=== PATIENT | female | born 1970 | race Caucasian/White ===

== ENCOUNTER 2017-12-23 11:48 | Emergency (ER) | payer BC ==
[2017-12-23 13:29] LABS: Urine Blood NEGATIVE (NEG); Urine Glucose NEGATIVE (NEG); Urine Protein NEGATIVE (NEG); Urine pH 6.5 (5.0-7.0)
[2017-12-23] MEDS ORDERED: DEXAMETHASONE 10 MG/ML VIAL ONE (13:42)
[2017-12-23] MEDS ORDERED: ACETAMINOPHEN 500 MG TAB ONE (13:43)
[2017-12-23] MEDS ORDERED: NA CHLORIDE 0.9% 1,000 ML ONE (13:43)
[2017-12-23] MEDS ORDERED: ONDANSETRON 4 MG/2 ML VIAL ONE (13:43)
--- NOTE | 2017-12-23 13:50 | RAD REPORT ---
EXAM DESCRIPTION: CT - Head Brain Wo Cont - 12/23/2017 1:37 pm CLINICAL HISTORY: Headache and vomiting COMPARISON: None. TECHNIQUE: Computed axial tomography of the head was obtained. IV contrast was not requested. All CT scans are performed using dose optimization technique as appropriate and may include automated exposure control or mA/KV adjustment according to patient size. FINDINGS: An intracranial bleed is not seen . The ventricles are normal in caliber. No extra-axial fluid collection is noted. Fluid within the sinuses/ mastoids is not seen. IMPRESSION: No acute intracranial abnormality is seen. If patient's symptoms persist MRI of the bra in would be recommended.
[2017-12-23 14:05] LABS: Absolute Lymphocytes (CBC) 2.9 K/uL (0.7-4.9); Absolute Monocytes 0.7 K/uL (0.1-1.3); Absolute Neutrophil 5.5 K/uL (1.8-8.0); Basophils % 0.2 % (0-1.3); Hematocrit 46.6 % (36.0-45.0); Lymphocytes % 31.8 % (15.3-44.8); MCH 33.7 pg (27.0-35.0); MCV 99.1 fL (80-100); MPV 10.1 fL (7.6-11.3); Monocytes % 7.2 % (3.3-12.3); RBC Red Blood Cell Count 4.71 M/uL (3.86-4.86)
[2017-12-23 14:20] LABS: ALT/SGPT 70 U/L (12-78); AST/SGOT 49 U/L (15-37); Albumin 3.1 g/dL (3.4-5.0); Alkaline Phosphatase 125 U/L (45-117); BUN Blood Urea Nitrogen 7 mg/dL (7-18); Bicarbonate 29 mmol/L (21-32); Bilirubin Direct < 0.1 mg/dL (0-0.2); Bilirubin Total 0.2 mg/dL (0.2-1.0); Glucose Level 94 mg/dL (74-106); Lipase 148 U/L (73-393); Potassium 3.6 mmol/L (3.5-5.1); Protein, Total 7.3 g/dL (6.4-8.2); Sodium Level 143 mmol/L (136-145)
[2017-12-23 14:24] LABS: Urine RBC <5 /HPF (NONE SEEN)
[2017-12-23 14:25] LABS: Urine Bacteria 20-50 /HPF (<20); Urine Culture Reflex Order REFLEXED
[2017-12-23] MEDS ORDERED: CEFTRIAXONE/SWI 1gm 1 GM/10 ML SYR ONE (15:20)
--- NOTE | 2017-12-23 15:39 | ER ---
Nurse's Notes [facility] Name: Arely Cronin Age: 47 yrs Sex: Female : 1970 Arrival Date: 12/23/2017 Time: 11:50 Bed 30 Private MD: Diagnosis: acute headache;acute vomiting;acute UTI Presentation: 12/23 12:17 Presenting complaint: Patient states: " I have had a headache and I've been throwing up ph since yesterday and I can't keep anything down." Pt reports epigastric pain, N/V/D, denies fever. Transition of care: patient was not received from another setting of care. Onset of symptoms was December 23, 2017. Risk Assessment: Do you want to hurt yourself or someone else? Patient reports no desire to harm self or others. Initial Sepsis Screen: Does the patient meet any 2 criteria? No. Patient's initial sepsis screen is negative. Does the patient have a suspected source of infection? No. Patient's initial sepsis screen is negative. Care prior to arrival: None. 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 - Social history:: Smoking status: Patient uses tobacco products, smokes one pack cigarettes per day. - Ebola Screening: : Patient negative for fever greater than or equal to 101.5 degrees Fahrenheit, and additional compatible Ebola Virus Disease symptoms Patient denies exposure to infectious person Patient denies travel to an Ebola-affected area in the 21 days before illness onset No symptoms or risks identified at this time. - Family history:: not pertinent. - Hospitalizations: : No recent hospitalization is reported. Screenin:05 Abuse screen: Denies threats or abuse. Denies injuries from another. Nutritional kr2 screening: No deficits noted. Tuberculosis screening: No symptoms or risk factors identified. Fall Risk None identified. Assessment: 13:05 General: Appears in no apparent distress. uncomfortable, well groomed, well developed, kr2 well nourished, Behavior is calm, cooperative, appropriate for age. Pain: Complains of pain in head Pain does not radiate. Pain currently is 8 out of 10 on a pain scale. Quality of pain is described as throbbing, Pain began 1 day ago. Is continuous, Alleviated by nothing. Neuro: Level of Consciousness is awake, alert, obeys commands, Oriented to person, place, time, situation, Appropriate for age. Cardiovascular: Capillary refill < 3 seconds in bilateral fingers Patient's skin is warm and dry. Respiratory: Airway is patent Respiratory effort is even, unlabored, Respiratory pattern is regular, symmetrical. GI: Abdomen is flat, non-distended, Reports nausea, vomiting, since yesterday. : Urine is clear, Denies burning with urination. EENT: Oral mucosa is dry. Derm: Skin is intact, is healthy with good turgor, Skin is pink, warm \\T\\ dry. Musculoskeletal: Circulation, motion, and sensation intact. 14:40 Reassessment: Patient appears in no apparent distress at this time. Patient and/or kr2 family updated on plan of care and expected duration. Pain level reassessed. Patient is alert, oriented x 3, equal unlabored respirations, skin warm/dry/pink. Patient's oxygen saturation dropping to 89% on room air. Placed on Oxygen via NC \\T\\ 2LPM. Dr. Jones Patient states feeling better. 15:21 Reassessment: Patient appears in no apparent distress at this time. Patient and/or kr2 family updated on plan of care and expected duration. Pain level reassessed. Patient is alert, oriented x 3, equal unlabored respirations, skin warm/dry/pink. Patient states feeling better. Patient states symptoms have improved. 15:46 Reassessment: Patient appears in no apparent distress at this time. Patient and/or kr2 family updated on plan of care and expected duration. Pain level reassessed. Patient is alert, oriented x 3, equal unlabored respirations, skin warm/dry/pink. Patient states feeling better. Patient states symptoms have improved. Vital Signs: 12:20 BP 139 / 83; Pulse 101; Resp 20; Temp 97.9; Pulse Ox 96% on R/A; Weight 99.79 kg; ph Height 5 ft. 7 in. (170.18 cm); Pain 5/10; 13:30 BP 100 / 58; Pulse 88; Resp 16; Pulse Ox 95% on R/A; Pain 8/10; kr2 14:41 BP 114 / 70; Pulse 73; Resp 18; Pulse Ox 94% on 2 lpm NC; kr2 15:21 BP 117 / 75; Pulse 78; Resp 16; Pulse Ox 98% on 2 lpm NC; kr2 15:46 BP 130 / 83; Pulse 70; Resp 17; Pulse Ox 98% ; kr2 12:20 Body Mass Index 34.46 (99.79 kg, 170.18 cm) ph ED Course: 11:50 Patient arrived in ED. jb7 12:19 Triage completed. ph 12:20 Arm band placed on. ph 12:59 Ryan Dockery, RN is Primary Nurse. mg2 13:00 Primary Nurse role handed off by Ryan Dockery RN kr2 13:00 Althea Alvarado, RN is Primary Nurse. kr2 13:01 Althea Alvarado, LUZ MARIA is Primary Nurse. kr2 13:02 Nelson Jones MD is Attending Physician. wa 13:05 Patient has correct armband on for positive identification. Bed in low position. Call kr2 light in reach. Side rails up X 1. Pulse ox on. NIBP on. Door closed. Warm blanket given. Head of bed elevated. 13:05 Urine collected: clean catch specimen, clear. kr2 13:35 CT completed. Patient tolerated procedure well. Patient taken to lobby, Patient moved sj to CT. Patient moved to CT via wheelchair. Patient moved back from CT. 13:37 CT Head Brain wo Cont In Process Unspecified. EDMS 13:45 Inserted saline lock: 20 gauge in right forearm, using aseptic technique. Blood kr2 collected. 15:38 Frank Mondragon MD is Referral Physician. wa 15:47 No provider procedures requiring assistance completed. IV discontinued, intact, kr2 bleeding controlled, No redness/swelling at site. Pressure dressing applied. Administered Medications: 13:54 Drug: Zofran 4 mg Route: IVP; Site: right forearm; kr2 14:31 Follow up: Response: No adverse reaction kr2 13:54 Drug: Tylenol 1000 mg Route: PO; kr2 14:32 Follow up: Response: No adverse reaction; Pain is decreased kr2 13:55 Drug: NS 0.9% 1000 ml Route: IV; Rate: 1 bolus; Site: right forearm; kr2 14:31 Follow up: Response: No adverse reaction; IV Status: Completed infusion kr2 13:55 Drug: Decadron - Dexamethasone 10 mg Route: IVP; Site: right forearm; kr2 14:31 Follow up: Response: No adverse reaction kr2 15:18 Drug: Rocephin - (cefTRIAXone) 1 grams Route: IVPB; Infused Over: 30 mins; Site: right kr2 forearm; 15:47 Follow up: Response: No adverse reaction; IV Status: Completed infusion kr2 Outcome: 15:38 Discharge ordered by . estevan 15:48 Discharged to home ambulatory, with family. kr2 15:48 Condition: improved 15:48 Discharge instructions given to patient, family, Instructed on discharge instructions, follow up and referral plans. medication usage, Demonstrated understanding of instructions, follow-up care, medications, Prescriptions given X 2. 15:48 Patient left the ED. kr2 Signatures: Dispatcher [employer] EDMS Elyse Chaney Patricia, RN RN ph Andrew Parisi jb7 Nelson Jones MD MD wa Reaves, Karey, RN RN kr2 Ryan Dockery RN RN mg2 Corrections: (The following items were deleted from the chart) 15:47 15:21 BP 117 / 75; Pulse 18bpm; Resp 16bpm; Pulse Ox 98% 2 lpm Nasal Cannula; kr2 kr2
--- NOTE | 2017-12-23 15:39 | EDPHYS ---
Physician Documentation [facility] Name: Arely Cronin Age: 47 yrs Sex: Female : 1970 Arrival Date: 12/23/2017 Time: 11:50 Bed 30 Private MD: ED Physician Nelson Jones HPI: 12/23 17:20 This 47 yrs old Female presents to ER via Ambulatory with complaints of wa Nausea/Vomiting. 17:20 The patient presents to the emergency department with nausea, vomiting, states woke up wa yesterday with FINCH. had a couple episodes of vomiting, then FINCH subsided. Today same FINCH, c/o nausea and vomiting. denies fever. denies photophobia. pain gradual in onset. describes as 12/15. denies fever. Onset: The symptoms/episode began/occurred yesterday. Possible causes: unknown. The symptoms are aggravated by nothing. The symptoms are alleviated by nothing. Associated signs and symptoms: Pertinent negatives: abdominal pain, constipation, dysuria, fever, hematuria, vaginal discharge. Severity of symptoms: At their worst the symptoms were moderate in the emergency department the symptoms are unchanged. The patient has not experienced similar symptoms in the past. The patient has not recently seen a physician. denies family h/o aneurysms or HAs. 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 - Social history:: Smoking status: Patient uses tobacco products, smokes one pack cigarettes per day. - Ebola Screening: : Patient negative for fever greater than or equal to 101.5 degrees Fahrenheit, and additional compatible Ebola Virus Disease symptoms Patient denies exposure to infectious person Patient denies travel to an Ebola-affected area in the 21 days before illness onset No symptoms or risks identified at this time. - Family history:: not pertinent. - Hospitalizations: : No recent hospitalization is reported. ROS: 17:32 Constitutional: Negative for fever, chills, and weight loss, Eyes: Negative for injury, wa pain, redness, and discharge, ENT: Negative for injury, pain, and discharge, Neck: Negative for injury, pain, and swelling, Cardiovascular: Negative for chest pain, palpitations, and edema, Respiratory: Negative for shortness of breath, cough, wheezing, and pleuritic chest pain, Back: Negative for injury and pain, : Negative for injury, bleeding, discharge, and swelling, MS/Extremity: Negative for injury and deformity, Skin: Negative for injury, rash, and discoloration, Psych: Negative for depression, anxiety, suicide ideation, homicidal ideation, and hallucinations. 17:32 Abdomen/GI: Positive for nausea and vomiting, Negative for abdominal pain. 17:32 Neuro: Positive for headache, nausea and vomiting. 17:32 All other systems are negative. Exam: 17:33 Constitutional: This is a well developed, well nourished patient who is awake, alert, wa and in no acute distress. Head/Face: Normocephalic, atraumatic. Eyes: Pupils equal round and reactive to light, extra-ocular motions intact. Lids and lashes normal. Conjunctiva and sclera are non-icteric and not injected. Cornea within normal limits. Periorbital areas with no swelling, redness, or edema. ENT: Nares patent. No nasal discharge, no septal abnormalities noted. Tympanic membranes are normal and external auditory canals are clear. Oropharynx with no redness, swelling, or masses, exudates, or evidence of obstruction, uvula midline. Mucous membranes moist. Neck: Trachea midline, no thyromegaly or masses palpated, and no cervical lymphadenopathy. Supple, full range of motion without nuchal rigidity, or vertebral point tenderness. No Meningismus. Chest/axilla: Normal chest wall appearance and motion. Nontender with no deformity. No lesions are appreciated. Cardiovascular: Regular rate and rhythm with a normal S1 and S2. No gallops, murmurs, or rubs. Normal PMI, no JVD. No pulse deficits. Respiratory: Lungs have equal breath sounds bilaterally, clear to auscultation and percussion. No rales, rhonchi or wheezes noted. No increased work of breathing, no retractions or nasal flaring. Abdomen/GI: Soft, non-tender, with normal bowel sounds. No distension or tympany. No guarding or rebound. No evidence of tenderness throughout. Back: No spinal tenderness. No costovertebral tenderness. Full range of motion. Skin: Warm, dry with normal turgor. Normal color with no rashes, no lesions, and no evidence of cellulitis. MS/ Extremity: Pulses equal, no cyanosis. Neurovascular intact. Full, normal range of motion. 17:33 Neuro: Orientation: is normal, Mentation: is normal, Memory: is normal, Cranial nerves: grossly normal, Cerebellar function: is grossly normal based on the patient's age, no acute changes, normal finger to nose testing, heel to otero testing is normal, able to perform alternating rapid hand movements, Motor: is normal, Gait: is steady. Vital Signs: 12:20 BP 139 / 83; Pulse 101; Resp 20; Temp 97.9; Pulse Ox 96% on R/A; Weight 99.79 kg; ph Height 5 ft. 7 in. (170.18 cm); Pain 5/10; 13:30 BP 100 / 58; Pulse 88; Resp 16; Pulse Ox 95% on R/A; Pain 8/10; kr2 14:41 BP 114 / 70; Pulse 73; Resp 18; Pulse Ox 94% on 2 lpm NC; kr2 15:21 BP 117 / 75; Pulse 78; Resp 16; Pulse Ox 98% on 2 lpm NC; kr2 15:46 BP 130 / 83; Pulse 70; Resp 17; Pulse Ox 98% ; kr2 12:20 Body Mass Index 34.46 (99.79 kg, 170.18 cm) ph MDM: 13:03 Patient medically screened. in 17:33 Differential diagnosis: r/o acute ICH. migraine? tension FINCH? treat pain and reassess. in Data reviewed: vital signs, nurses notes. Test interpretation: by ED physician or midlevel provider: labs noted for UTI. head CT noted negative for acute process. Response to treatment: the patient's symptoms have resolved after treatment. ED course: FINCH resolved. treated UTI. advised close f/u and to return if severe symptoms reoccur. will not LP at this time, based on findings and reassessment. 12/23 13:25 Order name: Urine Dipstick--Ancillary (enter results); Complete Time: 15:09 bd 12/23 13:25 Order name: Urine --Ancillary (enter results) 12/23 13:28 Order name: Basic Metabolic Panel; Complete Time: 15:09 in 12/23 13:28 Order name: CBC with Diff; Complete Time: 15: in 12/23 13:28 Order name: Hepatic Function; Complete Time: 15:09 in 12/23 13:28 Order name: Lipase; Complete Time: 15:10 in 12/23 13:27 Order name: CT Head Brain wo Cont; Complete Time: 15: in 12/23 13:28 Order name: Urine Microscopic Only; Complete Time: 15:09 in 12/23 14:26 Order name: Urine Culture [facility] 12/23 13:28 Order name: IV Saline Lock; Complete Time: 13:55 in 12/23 13:28 Order name: Labs collected and sent; Complete Time: 13:55 in 12/23 13:28 Order name: Urine Dipstick-Ancillary (obtain specimen); Complete Time: 13:55 in Administered Medications: 13:54 Drug: Zofran 4 mg Route: IVP; Site: right forearm; kr2 14:31 Follow up: Response: No adverse reaction kr2 13:54 Drug: Tylenol 1000 mg Route: PO; kr2 14:32 Follow up: Response: No adverse reaction; Pain is decreased kr2 13:55 Drug: NS 0.9% 1000 ml Route: IV; Rate: 1 bolus; Site: right forearm; kr2 14:31 Follow up: Response: No adverse reaction; IV Status: Completed infusion kr2 13:55 Drug: Decadron - Dexamethasone 10 mg Route: IVP; Site: right forearm; kr2 14:31 Follow up: Response: No adverse reaction kr2 15:18 Drug: Rocephin - (cefTRIAXone) 1 grams Route: IVPB; Infused Over: 30 mins; Site: right kr2 forearm; 15:47 Follow up: Response: No adverse reaction; IV Status: Completed infusion kr2 Disposition: 12/23/17 15:38 Discharged to Home. Impression: acute headache, acute vomiting, acute UTI. - Condition is Stable. - Prescriptions for Cipro 500 mg Oral Tablet - take 1 tablet by ORAL route every 12 hours for 3 days; 6 tablet. Zofran 4 mg Oral Tablet - take 1 tablet by ORAL route every 12 hours As needed; 6 tablet. - Medication Reconciliation Form, Thank You Letter, Antibiotic Education, Prescription Opioid Use, Work release form form. - Follow up: Frank Mondragon MD; When: 1 - 2 days; Reason: Recheck today's complaints. - Problem is new. - Symptoms have improved. - Notes: return to ER immediately for worsening pain and or vomiting. take medicines as prescribed. you may take tylenol for headache Signatures: Dispatcher [employer] EDJennifer Estrada RN RN Nelson Jones MD MD wa Reaves, Karey, RN RN kr2 Corrections: (The following items were deleted from the chart) 15:48 15:38 12/23/2017 15:38 Discharged to Home. Impression: acute headache; acute vomiting; kr2 acute UTI. Condition is Stable. Forms are Work release form, Medication Reconciliation Form, Thank You Letter, Antibiotic Education, Prescription Opioid Use. Follow up: Frank Mondragon; When: 1 - 2 days; Reason: Recheck today's complaints. Problem is new. Symptoms have improved. estevan
[2017-12-23 16:20] VITALS: TEMP 97.9
[2017-12-23 16:23] VITALS: O2SAT 98
[2017-12-23 16:25] VITALS: BP 130/83
== END 2017-12-23 15:48 | disposition home or self-care (01) ==
LOC: ER 11:48
DX: N39.0 Urinary tract infection, site not specified (principal); R11.2 Nausea with vomiting, unspecified; I10 Essential (primary) hypertension; F31.9 Bipolar disorder, unspecified; F17.210 Nicotine dependence, cigarettes, uncomplicated; Z88.5 Allergy status to narcotic agent
CPT/HCPCS: 36415; 70450; 80048; 80076; 81003; 81015; 81025; 83690; 85025; 87086; 87088; 96361; 96365; 96375; 99284; J0696; J1100; J2405; J7030

== ENCOUNTER 2017-12-24 18:57 | Observation (INO) | payer BC ==
[2017-12-24] MEDS ORDERED: NA CHLORIDE 0.9% 1,000 ML ONE (19:34)
[2017-12-24] MEDS ORDERED: DIPHENHYDRAMINE 50 MG/ML VIAL ONE (19:34)
[2017-12-24] MEDS ORDERED: DEXAMETHASONE 10 MG/ML VIAL ONE (19:34)
[2017-12-24] MEDS ORDERED: METOCLOPRAMIDE 10 MG/2mL INJ ONE (19:34)
[2017-12-24 19:43] LABS: Absolute Lymphocytes (CBC) 2.9 K/uL (0.7-4.9); Absolute Monocytes 0.9 K/uL (0.1-1.3); Absolute Neutrophil 12.5 K/uL (1.8-8.0); Basophils % 0.6 % (0-1.3); Eosinophils % 0.2 % (0-4.4); Hematocrit 46.2 % (36.0-45.0); Lymphocytes % 17.5 % (15.3-44.8); MCH 33.4 pg (27.0-35.0); MCV 100.6 fL (80-100); MPV 9.8 fL (7.6-11.3); Monocytes % 5.3 % (3.3-12.3); RBC Red Blood Cell Count 4.59 M/uL (3.86-4.86)
[2017-12-24] MEDS ORDERED: FENTANYL CITR 100 MCG/2 ML ONE (19:54)
[2017-12-24 19:58] LABS: ALT/SGPT 74 U/L (12-78); AST/SGOT 43 U/L (15-37); Albumin 3.3 g/dL (3.4-5.0); Alkaline Phosphatase 126 U/L (45-117); BUN Blood Urea Nitrogen 8 mg/dL (7-18); Bicarbonate 30 mmol/L (21-32); Bilirubin Direct 0.1 mg/dL (0-0.2); Bilirubin Total 0.2 mg/dL (0.2-1.0); Glucose Level 138 mg/dL (74-106); Lipase 389 U/L (73-393); Potassium 3.6 mmol/L (3.5-5.1); Protein, Total 7.8 g/dL (6.4-8.2); Sodium Level 141 mmol/L (136-145)
[2017-12-24 20:16] LABS: Urine Bacteria <20 /HPF (<20); Urine Culture Reflex Order NOT NEEDED; Urine RBC <5 /HPF (NONE SEEN)
[2017-12-24] MEDS ORDERED: ONDANSETRON 4 MG/2 ML VIAL IV PRN (21:53)
--- NOTE | 2017-12-24 22:00 | EDPHYS ---
Physician Documentation [facility] Name: Arely Cronin Age: 47 yrs Sex: Female : 1970 Arrival Date: 12/24/2017 Time: 18:59 Bed 25 Private MD: None, None ED Physician Nelson Jones HPI: 12/24 20:42 This 47 yrs old Female presents to ER via Ambulatory with complaints of wa Nausea, Headache, Abdominal Pain. 20:50 This 47 yrs old Female presents to ER via Ambulatory with complaints of wa Nausea, Headache, Abdominal Pain. 20:50 The patient complains of pain to the diffuse. The patient describes the headache as wa aching. Onset: The symptoms/episode began/occurred 2 day(s) ago. Associated signs and symptoms: Pertinent positives: Photophobia Pertinent negatives: dizziness, fever, nausea, neck stiffness, vision changes, vomiting. Severity of symptoms: At its worst the pain was severe, in the emergency department the pain is unchanged. Headache History: Denies prior headaches. The symptoms are alleviated by nothing. the symptoms are aggravated by nothing. The patient has not experienced similar symptoms in the past. The patient has been recently seen by a physician: yesterday, in this ED. 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 - Social history:: Smoking status: Patient uses tobacco products, smokes 1.5 packs per day. - Ebola Screening: : No symptoms or risks identified at this time. - Family history:: not pertinent. - Hospitalizations: : No recent hospitalization is reported. ROS: 20:52 Constitutional: Negative for fever, chills, and weight loss, Eyes: Negative for injury, wa pain, redness, and discharge, ENT: Negative for injury, pain, and discharge, Neck: Negative for injury, pain, and swelling, Cardiovascular: Negative for chest pain, palpitations, and edema, Respiratory: Negative for shortness of breath, cough, wheezing, and pleuritic chest pain, Back: Negative for injury and pain, : Negative for injury, bleeding, discharge, and swelling, MS/Extremity: Negative for injury and deformity, Skin: Negative for injury, rash, and discoloration, Psych: Negative for depression, anxiety, suicide ideation, homicidal ideation, and hallucinations. 20:52 Abdomen/GI: Positive for abdominal pain, of the epigastric area, Negative for vomiting. 20:52 All other systems are negative. wa Exam: 20:53 Constitutional: This is a well developed, well nourished patient who is awake, alert, wa and in no acute distress. Head/Face: Normocephalic, atraumatic. Eyes: Pupils equal round and reactive to light, extra-ocular motions intact. Lids and lashes normal. Conjunctiva and sclera are non-icteric and not injected. Cornea within normal limits. Periorbital areas with no swelling, redness, or edema. ENT: Nares patent. No nasal discharge, no septal abnormalities noted. Tympanic membranes are normal and external auditory canals are clear. Oropharynx with no redness, swelling, or masses, exudates, or evidence of obstruction, uvula midline. Mucous membranes moist. Neck: Trachea midline, no thyromegaly or masses palpated, and no cervical lymphadenopathy. Supple, full range of motion without nuchal rigidity, or vertebral point tenderness. No Meningismus. Cardiovascular: Regular rate and rhythm with a normal S1 and S2. No gallops, murmurs, or rubs. Normal PMI, no JVD. No pulse deficits. Respiratory: Lungs have equal breath sounds bilaterally, clear to auscultation and percussion. No rales, rhonchi or wheezes noted. No increased work of breathing, no retractions or nasal flaring. Back: No spinal tenderness. No costovertebral tenderness. Full range of motion. Skin: Warm, dry with normal turgor. Normal color with no rashes, no lesions, and no evidence of cellulitis. MS/ Extremity: Pulses equal, no cyanosis. Neurovascular intact. Full, normal range of motion. Psych: Awake, alert, with orientation to person, place and time. Behavior, mood, and affect are within normal limits. 20:53 Abdomen/GI: Inspection: abdomen appears normal, Bowel sounds: normal, in all quadrants, Palpation: mild abdominal tenderness, in the epigastric area. 20:53 Neuro: Orientation: is normal, Mentation: is normal, Cranial nerves: grossly normal, Cerebellar function: is grossly normal, normal finger to nose testing, heel to otero testing is normal, able to perform alternating rapid hand movements, Motor: is normal. Vital Signs: 19:09 BP 160 / 103; Pulse 89; Resp 18; Temp 98(O); Pulse Ox 98% ; Weight 99.79 kg; Height 5 tl2 ft. 7 in. (170.18 cm); Pain 8/10; 20:31 BP 143 / 95; Pulse 70; Pulse Ox 97% on R/A; rv 21:33 BP 145 / 127; Pulse 67; Pulse Ox 92% on R/A; rv 19:09 Body Mass Index 34.46 (99.79 kg, 170.18 cm) tl2 MDM: 19:09 Patient medically screened. wa 21:03 Differential diagnosis: pt seen yesterday in this ED. FINCH improved. states persistent FINCH wa all day today. needs LP. Pt however s/p lumbar laminectomy with rods in the midline lumbar spine. will check CTA brain and neck. will admit for LP under fluoro in the AM. 21:57 Data reviewed: vital signs, nurses notes, lab test result(s), radiologic studies. Test wa interpretation: by ED physician or midlevel provider: labs noted for leukocytosis. Test interpretation: by ED physician or midlevel provider: CTA head and neck negative for acute process. Response to treatment: the patient's symptoms have markedly improved after treatment. Physician consultation: Matt Goldstein DO. Admission orders: after a detailed discussion of the patient's condition and case, the admit orders are written by me. 22:00 Special discussion: needs LP. metal plate in L-spine. will admit for obs and perform wa study under fluoro in the AM. . 12/24 19:20 Order name: Basic Metabolic Panel; Complete Time: 20:41 12/24 19:20 Order name: CBC with Diff; Complete Time: 20:41 12/24 19:20 Order name: Hepatic Function; Complete Time: 20:41 12/24 19:20 Order name: Lipase; Complete Time: 20:41 12/24 19:20 Order name: Urine Microscopic Only; Complete Time: 20:41 me 12/24 19:27 Order name: Head angio [facility] 12/24 19:58 Order name: Neck Angio [facility] 12/24 22:02 Order name: Comprehensive Metabolic Panel [facility] 12/24 22:02 Order name: Comprehensive Metabolic Panel [facility] 12/24 22:02 Order name: Brain Wo Cont [facility] 12/24 22:03 Order name: Lumbar Puncture For Dx [facility] 12/24 19:20 Order name: IV Saline Lock; Complete Time: 19:27 me 12/24 19:20 Order name: Labs collected and sent; Complete Time: 19:27 me 12/24 19:20 Order name: Urine Dipstick-Ancillary (obtain specimen); Complete Time: 20:06 12/24 22:02 Order name: CONS Pharmacy Consult [facility] Administered Medications: 19:45 Drug: Benadryl 12.5 mg Route: IVP; Site: right wrist; rv 20:30 Follow up: Response: No adverse reaction rv 19:45 Drug: NS 0.9% 1000 ml Route: IV; Rate: 1 bolus; Site: right wrist; rv 20:31 Follow up: Response: No adverse reaction rv 19:46 Drug: Decadron - Dexamethasone 10 mg Route: IVP; Site: right wrist; rv 20:30 Follow up: Response: No adverse reaction rv 19:46 Drug: Reglan 5 mg Route: IVP; Site: right wrist; rv 20:30 Follow up: Response: No adverse reaction rv 19:58 Drug: fentaNYL (PF) 25 mcg Route: IVP; Site: right wrist; rv 20:30 Follow up: Response: No adverse reaction; Pain is decreased rv Disposition: 12/24/17 22:00 Hospitalization ordered by Matt Goldstein for Observation. Preliminary diagnosis are Acute headache, Acute abdominal pain. - Bed requested for Telemetry/MedSurg (observation). - Status is Observation. rv - Condition is Stable. - Problem is new. - Symptoms have improved. UTI on Admission? No Signatures: Dispatcher [employer] [facility] Alice Wallace RN RN fc Knox, Taylor, RN RN tl2 Nelson Jones MD MD me Moshe Moreira RN RN rv Corrections: (The following items were deleted from the chart) :58 19:43 Test, Urine ordered. [facility] EDMS 22:33 22:00 Hospitalization Ordered by [facility] for Observation. Preliminary diagnosis fc is Acute headache; Acute abdominal pain. Bed requested for Telemetry/MedSurg (observation). Status is Observation. Condition is Stable. Problem is new. Symptoms have improved. UTI on Admission? No. wa 22:38 22:33 12/24/2017 22:00 Hospitalization Ordered by [facility] for Observation. tl2 Preliminary diagnosis is Acute headache; Acute abdominal pain. Bed requested for Telemetry/MedSurg (observation). Status is Observation. Condition is Stable. Problem is new. Symptoms have improved. UTI on Admission? No. fc 23:28 22:38 12/24/2017 22:00 Hospitalization Ordered by [facility] for Observation. rv Preliminary diagnosis is Acute headache; Acute abdominal pain. Bed requested for Telemetry/MedSurg (observation). Status is Observation. Condition is Stable. Problem is new. Symptoms have improved. UTI on Admission? No. tl2
--- NOTE | 2017-12-24 22:00 | ER ---
Nurse's Notes [facility] Name: Arely Cronin Age: 47 yrs Sex: Female : 1970 Arrival Date: 12/24/2017 Time: 18:59 Bed 25 Private MD: None, None Diagnosis: Acute headache;Acute abdominal pain Presentation: 12/24 19:07 Presenting complaint: Patient states: I was here yesterday and Dr. Jones told me to tl2 come back tonight if I felt worse. I still have a headache and upper abdominal pain. Transition of care: patient was not received from another setting of care. Onset of symptoms was December 23, 2017. Risk Assessment: Do you want to hurt yourself or someone else? Patient reports no desire to harm self or others. Initial Sepsis Screen: Does the patient meet any 2 criteria? No. Patient's initial sepsis screen is negative. Does the patient have a suspected source of infection? No. Patient's initial sepsis screen is negative. Care prior to arrival: None. 19:07 Method Of Arrival: Ambulatory tl2 19:07 Acuity: ABELINO 3 tl2 Triage Assessment: 19:09 General: Appears in no apparent distress. uncomfortable, Behavior is calm, cooperative, tl2 appropriate for age. Pain: Complains of pain in epigastric area Pain currently is 8 out of 10 on a pain scale. GI: Reports nausea, vomiting. [employer] ADJUSTER: 19:09 LMP N/A - Hysterectomy tl2 Historical: - Allergies: 19:09 Demerol; tl2 19:09 Dilaudid; tl2 - Home Meds: 19:09 Effexor Oral [Active]; lisinopril Oral [Active]; Xanax Oral [Active]; tl2 - PMHx: 19:09 Anxiety; Bipolar disorder; Hepatitis; Hypertension; tl2 - PSHx: 19:09 Cholecystectomy; Appendectomy; Hysterectomy; tl2 - Immunization history:: Adult Immunizations up to date. - Social history:: Smoking status: Patient uses tobacco products, smokes 1.5 packs per day. - Ebola Screening: : No symptoms or risks identified at this time. - Family history:: not pertinent. - Hospitalizations: : No recent hospitalization is reported. Screenin:10 Abuse screen: Denies threats or abuse. Nutritional screening: No deficits noted. tl2 Tuberculosis screening: No symptoms or risk factors identified. Fall Risk None identified. Assessment: 19:19 General: Appears in no apparent distress. comfortable, Behavior is calm, cooperative. rv Pain: Complains of pain in HEAD AND ABDOMINAL. Neuro: Level of Consciousness is awake, alert, obeys commands, Oriented to person, place, time, situation. Cardiovascular: Heart tones S1 S2 present. Respiratory: Airway is patent. GI: Abdomen is round non-distended. : No signs and/or symptoms were reported regarding the genitourinary system. EENT: No signs and/or symptoms were reported regarding the EENT system. Derm: Skin is intact. 20:59 Reassessment: Patient appears in no apparent distress at this time. Patient and/or rv family updated on plan of care and expected duration. Pain level reassessed. Patient is alert, oriented x 3, equal unlabored respirations, skin warm/dry/pink. AWAITING CT SCAN RESULT. PAIN IS DECREASED (6/10). Vital Signs: 19:09 BP 160 / 103; Pulse 89; Resp 18; Temp 98(O); Pulse Ox 98% ; Weight 99.79 kg; Height 5 tl2 ft. 7 in. (170.18 cm); Pain 8/10; 20:31 BP 143 / 95; Pulse 70; Pulse Ox 97% on R/A; rv 21:33 BP 145 / 127; Pulse 67; Pulse Ox 92% on R/A; rv 19:09 Body Mass Index 34.46 (99.79 kg, 170.18 cm) tl2 ED Course: 18:59 Patient arrived in ED. sb2 19:00 None, None is Private Physician. sb2 19:08 Triage completed. tl2 19:09 Nelson Jones MD is Attending Physician. wa 19:09 Arm band placed on right wrist. tl2 19:10 Patient has correct armband on for positive identification. Placed in gown. Bed in low tl2 position. Call light in reach. Side rails up X 1. Adult w/ patient. 19:22 Inserted saline lock: 20 gauge in right wrist, using aseptic technique. kr2 19:29 Radiology exam delayed due to lab results not completed at this time. (BUN/Creatinine). vr 20:11 Head angio In Process Unspecified. EDMS 20:11 Neck Angio In Process Unspecified. EDMS 21:59 GoldsteinMatt dan DO is Hospitalizing Provider. wa 23:27 No provider procedures requiring assistance completed. Patient admitted, IV remains in rv place. intact. Administered Medications: 19:45 Drug: Benadryl 12.5 mg Route: IVP; Site: right wrist; rv 20:30 Follow up: Response: No adverse reaction rv 19:45 Drug: NS 0.9% 1000 ml Route: IV; Rate: 1 bolus; Site: right wrist; rv 20:31 Follow up: Response: No adverse reaction rv 19:46 Drug: Decadron - Dexamethasone 10 mg Route: IVP; Site: right wrist; rv 20:30 Follow up: Response: No adverse reaction rv 19:46 Drug: Reglan 5 mg Route: IVP; Site: right wrist; rv 20:30 Follow up: Response: No adverse reaction rv 19:58 Drug: fentaNYL (PF) 25 mcg Route: IVP; Site: right wrist; rv 20:30 Follow up: Response: No adverse reaction; Pain is decreased rv Outcome: 22:00 Decision to Hospitalize by Provider. wa 23:27 Admitted to Med/surg accompanied by nurse, via wheelchair, room 228, with chart, Report rv called to [facility] 23:27 Condition: stable 23:28 Patient left the ED. rv Signatures: Dispatcher [employer] Sana Garrett Taylor, RN RN tl2 Nelson Jones MD MD wa Reaves, Karey, RN RN kr2 Tabatha Vaz sb2 Moshe Moreira RN RN rv
--- NOTE | 2017-12-24 22:13 | RAD REPORT ---
EXAM DESCRIPTION: CT - Neck Angio - 12/24/2017 8:12 pm CLINICAL HISTORY: Headache, hypertension COMPARISON: CT head same date TECHNIQUE: During dynamic enhancement using nonionic IV contrast, axial 2 mm thick images were obtai dania. Sagittal and coronal reconstruction imaging generated using MIP protocol. FINDINGS: Aortic arch is 3 vessel. No abnormality at the great vessel origins. Left vertebral artery origin is tortuous but otherwise unremarkable. Right vertebral artery origin normal as well. Right v ertebral artery is dominant. Patient has persistent origin of the right posterior cerebral елена ry distribution as a normal variant. Basilar artery is unremarkable. Bilateral common carotid artery' s are unremarkable. There is minimal tortuosity of the right common carotid artery origin. From origi n to supraclinoid termination the internal carotid arteries are unremarkable. No dissection, vasculitis or other suspicious vascular finding. There is no aneurysm or vascular malf ormation. Major veins of the neck are unremarkable. IMPRESSION: Negative CT angio neck
--- NOTE | 2017-12-24 22:13 | RAD REPORT ---
EXAM DESCRIPTION: CT - Head angio - 12/24/2017 8:10 pm CLINICAL HISTORY: Headache, hypertension COMPARISON: CT head December 23 TECHNIQUE: During dynamic enhancement using nonionic IV contrast axial imaging was performed with th in-section 2 mm sagittal and coronal MIP angio images generated. FINDINGS: No aneurysm or vascular malformation is identifiable. No vasculitis findings are seen. No measurable atherosclerotic changes are seen. No stenosis, dissection or acute arterial finding identi fiable. Major venous sinuses are patent. Internal cerebral veins normal in appearance along with a normal str aight sinus and vein of Patel. IMPRESSION: Negative CT angio head.
[2017-12-25] MEDS: NA CHLORIDE 0.9% 1,000 ML IV SCH ×2 (00:01→13:59)
[2017-12-25] MEDS: ACETAMINOPHEN 500 MG TAB PO PRN ×2 (00:58→10:04)
[2017-12-25 02:43] VITALS: BMI 34.4
[2017-12-25 05:22] LABS: Absolute Lymphocytes (CBC) 1.6 K/uL (0.7-4.9); Absolute Monocytes 0.6 K/uL (0.1-1.3); Absolute Neutrophil 9.6 K/uL (1.8-8.0); Basophils % 0.3 % (0-1.3); Hematocrit 43.1 % (36.0-45.0); Lymphocytes % 13.1 % (15.3-44.8); MCH 34.1 pg (27.0-35.0); MCV 101.2 fL (80-100); MPV 10.1 fL (7.6-11.3); Monocytes % 5.4 % (3.3-12.3); RBC Red Blood Cell Count 4.27 M/uL (3.86-4.86)
[2017-12-25 05:44] LABS: Albumin 2.9 g/dL (3.4-5.0); Bilirubin Total 0.2 mg/dL (0.2-1.0); Potassium 4.6 mmol/L (3.5-5.1); Protein, Total 6.8 g/dL (6.4-8.2)
--- NOTE | 2017-12-25 06:03 | P.HP ---
Certification for Inpatient Patient admitted to: Observation With expected LOS: <2 Midnights Patient will require the following post-hospital care: None Practitioner: I am a practitioner with admitting privileges, knowledge of patient current condition, hospital course, and medical plan of care. Services: Services provided to patient in accordance with Admission requirements found in Title 42 Section 412.3 of the Code of Federal Regulations Patient History Date of Service: 12/25/17 Reason for admission: Persistent headache History of Present Illness: Patient is a 47-year-old female who came into the emergency room yesterday with a headache. She had a workup including CT of the head which did not reveal any abnormalities. Patient was given a couple of different medicines for headaches and her symptoms improve so she was discharge. She came back in today with similar complaints. Once again imaging studies did not reveal any significant abnormalities. Emergency room physician wanted to admit the patient overnight for lumbar puncture along with opening pressure. There is some concern for meningitis. However, patient denies any fevers or prior headaches. There is no photophobia. Patient will be admitted to the hospital for further evaluation. Anticipate discharge home in 24 hr. Allergies hydromorphone [From Dilaudid] Adverse Reaction (Severe, Verified 12/24/17 23:56) Anaphylaxis meperidine [From Demerol] Adverse Reaction (Severe, Verified 12/24/17 23:56) Anaphylaxis Home Medications: Alprazolam [Xanax] 0.25 mg PO QIDP PRN 12/24/17 Lisinopril 10 mg PO DAILY 12/24/17 Venlafaxine HCl [Effexor XR] 150 mg PO DAILY 12/24/17 - Past Medical/Surgical History Has patient received pneumonia vaccine in the past: Yes Diabetic: No -: anxiety -: bipolar -: hep C -: hypertension -: keyana -: appy -: hysterectomy -: back surg x 3 - Family History Mother Notes: blood clot that killed her - Social History Smoking Status: Heavy Tobacco smoker (>10 cigarettes/day) Alcohol use: Yes CD- Drugs: No Caffeine use: Yes Place of Residence: Home Review of Systems 10-point ROS is otherwise unremarkable Physical Examination - Vital Signs Temperature: 98.1 F Blood Pressure: 111/54 Pulse: 91 Respirations: 18 Pulse Ox (%): 94 - Physical Exam General: Alert, In no apparent distress, Oriented x3 HEENT: Atraumatic, PERRLA, Mucous membr. moist/pink, EOMI, Sclerae nonicteric Neck: Supple, 2+ carotid pulse no bruit, No LAD, Without JVD or thyroid abnormality Respiratory: Clear to auscultation bilaterally, Normal air movement Cardiovascular: Regular rate/rhythm, Normal S1 S2, No gallops, No murmurs Capillary refill: >2 Seconds Gastrointestinal: Normal bowel sounds, Soft and benign, Non-distended, W/out succussion splash, No tenderness Musculoskeletal: No clubbing, No swelling, No tenderness Integumentary: No rashes Neurological: Normal gait, Normal speech, Normal strength at 5/5 x4 extr, Normal tone, Normal affect Lymphatics: No axilla or inguinal lymphadenopathy - Studies Laboratory Data (last 24 hrs) 12/24/17 19:25: WBC 16.4 H D, Hgb 15.3 H, Hct 46.2 H, Plt Count 156 12/24/17 19:25: Sodium 141, Potassium 3.6, BUN 8, Creatinine 0.70, Glucose 138 H , Total Bilirubin 0.2, AST 43 H, ALT 74, Alkaline Phosphatase 126 H, Lipase 389 Assessment & Plan - Problems (Diagnosis) (1) Persistent headaches Current Visit: Yes Status: Acute (2) Generalized weakness Current Visit: Yes Status: Acute (3) Hypertension Current Visit: Yes Status: Acute - Plan Plan: 1. Anti-platelet therapy and statin therapy 2. DVT prophylaxis 3. PT and speech therapy evaluation 4. MRI of the brain 5. Conservative measures at this time 6. GI and DVT prophylaxis - Advance Directives Does patient have a Living Will: No Does patient have a Durable POA for Healthcare: No
[2017-12-25] MEDS ORDERED: HOME MED 1 EA UNK (Venlafaxine Hcl [Effexor Xr] 150 MG) PO SCH (09:28)
[2017-12-25] MEDS ORDERED: FENTANYL CITR 100 MCG/2 ML IV PRN (09:28)
[2017-12-25] MEDS ORDERED: LORazepam 2 MG/ML VIAL IV ONE (09:59)
[2017-12-25] MEDS: VENLAFAXINE HCL XR 75 MG CAP PO SCH (10:00)
[2017-12-25] MEDS: ALPRAZOLAM 0.25 MG TABLET PO PRN (10:03)
[2017-12-25 13:01] LABS: Protime INR 1.02
--- NOTE | 2017-12-25 16:29 | RAD REPORT ---
EXAM DESCRIPTION: MRI - Brain Wo Cont - 12/25/2017 3:13 pm CLINICAL HISTORY: Stroke-like symptoms, headache, blurred vision and dizziness COMPARISON: CT angio head December 24, CT head December 23 TECHNIQUE: Sagittal T1-weighted images were obtained along with axial PD, heavily T2-weighted and T2 -FLAIR images. Axial DWI and ADC mapping sequences were also obtained along with coronal heavily T2-w eighted images. FINDINGS: No intracranial hemorrhage, mass or acute infarction. There is no edema or shift of midlin e structures. No extra-axial fluid collections. Martinez-matter/white matter junction is preserved. No at rophy changes are present. No chronic ischemic change or signal abnormality in the cerebral white mat ter, basal ganglia or thalamus. There is pontine signal abnormality present. No globe or orbital content abnormality. No sella or supra sella mass. Patient has an empty sella con figuration as a normal variant. No tonsillar ectopia. Mastoid air cells and paranasal sinuses are clear. IMPRESSION: No acute infarction changes are present. No hemorrhage or mass lesion identifiable. Abnormal hyperintense T2/IR signal intensity in the wei of the brainstem. No other abnormalities id entified. Hypertensive encephalopathy would be a diagnostic consideration for this patient. Neoplastic process of the wei is a differential consideration but felt to be unlikely given the overall appearance and absence of expansion. A demyelinating process such as MS would be possible. Acute disseminated enceph alomyelitis, rhombencephalitis, and central pontine myelinolysis can have this presentation but would need supporting clinical and laboratory findings.
--- NOTE | 2017-12-25 17:33 | RAD REPORT ---
EXAM DESCRIPTION: RAD - Lumbar Puncture For Dx - 12/25/2017 4:51 pm CLINICAL HISTORY: Headache, meningitis COMPARISON: None. TECHNIQUE: The procedure, risks and alternatives to the procedure were discussed with the patient in detail. After answering all questions, both oral and written consent were obtained. Time-out procedu re was performed. No contraindicated allergy or medication history. PT/INR values normal range. The patient was placed in an oblique prone position on the fluoroscopic table. The skin of the lower back was prepped and draped in the usual sterile fashion. After anesthetizing the skin and deeper sof t tissues with 1% lidocaine, a 22 gauge needle was advanced into the thecal sac at the L3 level. Intrathecal placement was confirmed. Approximately 8 cc of clear colorless CSF was obtained. An openi ng pressure of 21 was obtained. At the conclusion of the procedure the needle was withdrawn and a sterile bandage placed over the pun cture site. The patient tolerated the procedure well without immediate complications. Post-procedure care and precaution instructions were discussed with the patient before the LP procedure. Patient was transferred back to the floor for continued care. IMPRESSION: Fluoroscopic assisted lumbar puncture was performed. Approximately 8 cc of clear colorle ss CSF was obtained. An opening pressure of 21 was obtained.
[2017-12-25 21:40] LABS: CSF Glucose 70 mg/dL (40-70)
[2017-12-25 22:44] LABS: Appearance CLEAR (CLEAR); Body Fluid Source CSF; Body Fluid WBC 2 /mm^3; Color of fluid Colorless (COLORLESS)
[2017-12-25 22:45] LABS: Appearance CLEAR (CLEAR); Body Fluid Source CSF; Body Fluid WBC 0 /mm^3; Color of fluid Colorless (COLORLESS); Fluid Total Volume 8.8 ml
[2017-12-26] MEDS: ACETAMINOPHEN 500 MG TAB PO PRN (00:38)
[2017-12-26] MEDS: ALPRAZOLAM 0.25 MG TABLET PO PRN (00:38)
[2017-12-26] MEDS: NA CHLORIDE 0.9% 1,000 ML IV SCH (00:40)
--- NOTE | 2017-12-26 05:58 | P.DS ---
Discharge Date: 12/26/17 Disposition: ROUTINE DISCHARGE Discharge Condition: GOOD Reason for Admission: Persistent headache - Problems (1) Persistent headaches Onset Date: 12/25/17 Current Visit: Yes Status: Acute (2) Generalized weakness Onset Date: 12/25/17 Current Visit: Yes Status: Acute (3) Hypertension Onset Date: 12/25/17 Current Visit: Yes Status: Acute Brief History of Present Illness: Patient is a 47-year-old female who came into the emergency room yesterday with a headache. She had a workup including CT of the head which did not reveal any abnormalities. Patient was given a couple of different medicines for headaches and her symptoms improve so she was discharge. She came back in today with similar complaints. Once again imaging studies did not reveal any significant abnormalities. Emergency room physician wanted to admit the patient overnight for lumbar puncture along with opening pressure. There is some concern for meningitis. However, patient denies any fevers or prior headaches. There is no photophobia. Patient will be admitted to the hospital for further evaluation. Anticipate discharge home in 24 hr. Hospital Course: Patient clinical symptoms have improved. Her MRI revealed possible demyelinating process. She could also have hypertensives changes. She needs better blood pressure control. Will put her on low-dose blood pressure medications. Will also check nutritional levels as well. She will probably need follow with Neurology and a better diagnostic MRI with contrast to make sure there is no worrisome lesions. Her opening pressures were slightly elevated. She will need outpatient follow with Neurology but at this we do not have Neurology available to see her and she is clinically doing much better. I do not feel she needs to be hospitalized and her workup can be completed as an outpatient. Vital Signs/Physical Exam: Temp Pulse Resp BP Pulse Ox 97.6 F 63 16 113/55 L 94 12/26/17 04:00 12/26/17 04:00 12/26/17 04:00 12/26/17 04:00 12/26/17 04:00 General: Alert, In no apparent distress, Oriented x3 Laboratory Data at Discharge: WBC 11.9 K/uL (4.3-10.9) H D 12/25/17 04:47 Hgb 14.5 g/dL (12.0-15.0) 12/25/17 04:47 Hct 43.1 % (36.0-45.0) 12/25/17 04:47 Plt Count 141 K/uL (152-406) L 12/25/17 04:47 PT 12.0 SECONDS (9.5-12.5) 12/25/17 12:10 INR 1.02 12/25/17 12:10 Sodium 142 mmol/L (136-145) 12/25/17 04:47 Potassium 4.6 mmol/L (3.5-5.1) 12/25/17 04:47 BUN 10 mg/dL (7-18) 12/25/17 04:47 Creatinine 0.80 mg/dL (0.55-1.3) 12/25/17 04:47 Glucose 228 mg/dL (74-106) H 12/25/17 04:47 Total Bilirubin 0.2 mg/dL (0.2-1.0) 12/25/17 04:47 AST 37 U/L (15-37) 12/25/17 04:47 ALT 62 U/L (12-78) 12/25/17 04:47 Alkaline Phosphatase 110 U/L (45-117) 12/25/17 04:47 Lipase 389 U/L (73-393) 12/24/17 19:25 Home Medications: Alprazolam [Xanax] 0.25 mg PO QIDP PRN 12/24/17 Lisinopril 10 mg PO DAILY 12/24/17 Venlafaxine HCl [Effexor XR] 150 mg PO DAILY 12/24/17 Butalb/Acetaminophen/Caffeine [Fioricet 50-300-40 mg Capsule] 1 each PO Q6HP PRN #30 capsule 12/25/17 New Medications: Butalb/Acetaminophen/Caffeine [Fioricet 50-300-40 mg Capsule] 1 each PO Q6HP PRN #30 capsule PRN Reason: Headache Patient Discharge Instructions: OK TO DC IV AND DC HOME. FOLLOW-UP WITH PRIMARY CARE PROVIDER IN 1-2 WEEKS. FOLLOW-UP WITH NEUROLOGY, DR. GRAYSON, IN 1-2 WEEKS. RETURN TO THE ER IF SYMPTOMS WORSENS. CALL or TEXT DR. DELANEY AT IF ANY QUESTIONS REGARDING HOSPITAL STAY. PLEASE CALL THE FLOOR AT IF ANY MEDICATION OR NURSING QUESTIONS. Diet: Regular Activity: Fall precautions Followup: Winston Grayson MD [ASSOCIATE-ACTIVE - CAN ADMIT] - 1-2 Weeks (Follow up in office in 1-2 weeks. Call to schedule an appointment.) Time spent managing pt's care (in minutes): 30
[2017-12-26 06:50] LABS: Absolute Lymphocytes (CBC) 3.8 K/uL (0.7-4.9); Absolute Monocytes 0.8 K/uL (0.1-1.3); Absolute Neutrophil 5.7 K/uL (1.8-8.0); Basophils % 0.7 % (0-1.3); Eosinophils % 0.2 % (0-4.4); Hematocrit 41.7 % (36.0-45.0); Lymphocytes % 36.4 % (15.3-44.8); MCH 33.4 pg (27.0-35.0); MCV 99.8 fL (80-100); MPV 9.9 fL (7.6-11.3); Monocytes % 7.9 % (3.3-12.3); RBC Red Blood Cell Count 4.18 M/uL (3.86-4.86)
[2017-12-26 07:17] LABS: ALT/SGPT 57 U/L (12-78); AST/SGOT 43 U/L (15-37); Albumin 2.7 g/dL (3.4-5.0); Alkaline Phosphatase 86 U/L (45-117); BUN Blood Urea Nitrogen 10 mg/dL (7-18); Bicarbonate 28 mmol/L (21-32); Bilirubin Total 0.4 mg/dL (0.2-1.0); Folic Acid, (Folate) 8.5 ng/mL (3.1-17.5); Glucose Level 93 mg/dL (74-106); HDL Cholesterol 62 mg/dL (40-60); LDL Cholesterol, Calculated 88 (<130); Magnesium 2.4 mg/dL (1.8-2.4); Phosphorus 3.3 mg/dL (2.5-4.9); Potassium 3.8 mmol/L (3.5-5.1); Protein, Total 6.4 g/dL (6.4-8.2); Sodium Level 144 mmol/L (136-145)
[2017-12-26 08:38] VITALS: O2SAT 97
[2017-12-26 08:41] VITALS: BP 149/90; TEMP 98.2
[2017-12-26] MEDS: VENLAFAXINE HCL XR 75 MG CAP PO SCH (09:00)
== END 2017-12-26 09:35 | disposition home or self-care (01) ==
LOC: ER 18:57 → ERHOLD 22:08 → 2ND 23:18
PROVIDERS: ADMIT Hospitalist; ATTEND Hospitalist
PROC: 009U3ZX Drainage of Spinal Canal, Percutaneous Approach, Diagnostic (ICD-10-PCS; principal; 2017-12-25)
DX: R51 Headache (principal); R53.1 Weakness; I10 Essential (primary) hypertension; Z86.19 Personal history of other infectious and parasitic diseases; F31.9 Bipolar disorder, unspecified; F17.210 Nicotine dependence, cigarettes, uncomplicated
CPT/HCPCS: 36415; 62270; 70496; 70498; 70551; 77003; 80048; 80053; 80061; 80076; 81015; 82533; 82607; 82746; 82945; 83690; 83735; 84100; 84157; 84439; 84443; 85025; 85610; 87070; 89050; 96374; 96375; 99285; G0378; J1100; J2765; J3010; J7030; Q9967